=== PATIENT | female | born 1960 | race Caucasian/White ===

== ENCOUNTER 2021-10-19 14:10 | Outpatient (CLI) | payer BC | END 2021-10-19 14:11 | disposition home or self-care (01) | LOC: CSHLAB 14:10 | PROVIDERS: ATTEND Obstetrics & Gynecology | DX: Z01.818 Encounter for other preprocedural examination (principal); Z20.822 Contact with and (suspected) exposure to COVID-19 | CPT/HCPCS: 80048; 85027; 86850; 86900; 86901; 93005; 93010; U0003; U0005 ==

== ENCOUNTER 2021-10-24 08:22 | Day surgery (SDC) | payer BC ==
[2021-10-17 16:21] VITALS: BMI 29.8
[2021-10-19 15:41] LABS: Hemoglobin 13.4 g/dL (12.0-15.5); Mean Corpuscular HGB CONC 31.9 g/dL (32.0-36.0); Mean Corpuscular Hemoglobin 30.6 pg (27.0-33.0); Mean Corpuscular Volume 95.9 fl (81.6-98.3); Mean Platelet Volume 9.8 fl (7.4-10.4); Platelet Count 209 10x3/uL (150-450); RBC Distribution Width 12.4 % (11.5-14.5); Red Blood Cell (RBC) Count 4.38 10x6/uL (3.90-5.03); White Blood Cell (WBC) Count 11.5 10x3/uL (3.5-10.5)
[2021-10-19 16:07] LABS: Anion Gap 15 mmol/L (10-20); BUN (Urea Nitrogen) 20 mg/dL (9.8-20.1); Calc. Creatinine Clearance 0 mL/min (70-130); Carbon Dioxide 30 mmol/L (23-31); Chloride 103 mmol/L (98-107); Glucose 94 mg/dL (80-115); Potassium 3.6 mmol/L (3.5-5.1); Sodium 144 mmol/L (136-145)
[2021-10-20 08:54] LABS: SARS-CoV-2 PCR by NAA Not Detected (NotDetected)
[2021-10-24] MEDS ORDERED: Gabapentin 300 MG CAP ONE (08:50)
[2021-10-24] MEDS ORDERED: Lidocaine 1% w/Epinephrine 1:100K 20 ML VIAL ONE (08:50)
[2021-10-24] MEDS ORDERED: Midazolam HCl 2 mg/2 ml Vial ONE ×2 (08:50→09:58)
[2021-10-24] MEDS ORDERED: Famotidine 40 MG/4 ML VIAL ONE (08:50)
[2021-10-24] MEDS ORDERED: CeleCOXIB 100 MG CAP ONE (08:50)
[2021-10-24] MEDS ORDERED: Rocuronium Bromide 10 MG/ML (10ML VIAL) ONE (09:34)
[2021-10-24] MEDS ORDERED: PROPOFOL 20 ML ONE ×2 (09:34→11:16)
[2021-10-24] MEDS ORDERED: Lidocaine 1% PF 5 ML VIAL ONE (09:34)
[2021-10-24] MEDS ORDERED: Metoclopramide HCl 10 MG/2 ML VIAL ONE (09:34)
[2021-10-24] MEDS ORDERED: Fentanyl 250 MCG/5 ML VIAL ONE (09:34)
[2021-10-24] MEDS ORDERED: Dexamethasone 4 mg/ml Vial ONE (09:34)
[2021-10-24] MEDS ORDERED: Ondansetron PF 4 MG/2 ML Vial ONE (09:34)
[2021-10-24] MEDS ORDERED: Glycopyrrolate 0.2 MG/ML 5 ML SYRINGE ONE (09:34)
[2021-10-24] MEDS ORDERED: EPINEPHrine 1 MG/ML AMP ONE (09:43)
[2021-10-24] MEDS ORDERED: Bupivacaine PF 0.5% 30 ML VIAL ONE (09:43)
[2021-10-24] MEDS ORDERED: ceFAZolin 2 GM/Dextrose 50 ML IVPB ONE (10:15)
[2021-10-24] MEDS ORDERED: ePHEDrine Sulfate 50 MG/10 ML VIAL ONE (10:46)
[2021-10-24] MEDS ORDERED: Esmolol 100 MG/10 ML VIAL ONE (11:19)
[2021-10-24] MEDS ORDERED: Morphine 10 MG/ML VIAL ONE (11:23)
[2021-10-24] MEDS ORDERED: Labetalol HCl 100 MG/20 ML VIAL ONE (11:32)
[2021-10-24] MEDS ORDERED: Naloxone HCl 0.4 mg/ml Vial ONE (12:35)
[2021-10-24] MEDS ORDERED: Scopolamine 1.5 mg/72 hour Patch ONE (16:27)
== END 2021-10-24 19:20 | disposition home or self-care (01) ==
LOC: CSHSDC 08:22
PROVIDERS: ATTEND Obstetrics & Gynecology
PROC: 0UT74ZZ Resection of Bilateral Fallopian Tubes, Percutaneous Endoscopic Approach (ICD-10-PCS; principal; 2021-10-24)
PROC: 0UT24ZZ Resection of Bilateral Ovaries, Percutaneous Endoscopic Approach (ICD-10-PCS; principal; 2021-10-24)
PROC: 0UT94ZZ Resection of Uterus, Percutaneous Endoscopic Approach (ICD-10-PCS; principal; 2021-10-24)
DX: D25.2 Subserosal leiomyoma of uterus (principal); D27.0 Benign neoplasm of right ovary; N87.9 Dysplasia of cervix uteri, unspecified; N72 Inflammatory disease of cervix uteri; N84.0 Polyp of corpus uteri; N80.0 Endometriosis of uterus; N83.292 Other ovarian cyst, left side; N83.8 Other noninflammatory disorders of ovary, fallopian tube and broad ligament; N73.6 Female pelvic peritoneal adhesions (postinfective); I10 Essential (primary) hypertension; Z79.899 Other long term (current) drug therapy; Z20.822 Contact with and (suspected) exposure to COVID-19
CPT/HCPCS: 36415; 80048; 85027; 86850; 86900; 86901; 88112; 88307; 88313; 88341; 88342; J0171; J0690; J1100; J2250; J2270; J2310; J2405; J2704; J2765; J3010; S0020; U0003; U0005

== ENCOUNTER 2023-08-12 14:05 | Outpatient (CLI) | payer BC | END 2023-08-12 14:06 | disposition home or self-care (01) | LOC: CSHMAMMO 14:05 | PROVIDERS: ATTEND Obstetrics & Gynecology | DX: Z12.31 Encounter for screening mammogram for malignant neoplasm of breast (principal) | CPT/HCPCS: 77063; 77067 ==